=== PATIENT | male | born 2005 | race Caucasian/White ===

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

== ENCOUNTER 2023-02-13 15:30 | Emergency (ER) | payer MEDICAID ==
[~2023-02-13] VITALS: Ht 185.4 cm; Wt 86.5 kg
[~2023-02-13 15:30] MED LIST changes: -AMOX-117 PO; +LIDO15SO3 PO; -NAPR-56 PO
[2023-02-13 15:44] VITALS: BP 156/97; PULSE 86; RESP 18; TEMP 97.6; O2SAT 98
[2023-02-13] MEDS ORDERED: NAPR-56 PO (15:46)
[2023-02-13] MEDS ORDERED: DOXY-1 PO (15:46)
== END 2023-02-13 16:26 | disposition home or self-care (01) ==
LOC: ER 15:30
DX: K04.7 Periapical abscess without sinus (principal)
CPT/HCPCS: 99283

== ENCOUNTER 2024-01-05 22:16 | Emergency (ER) | payer MEDICAID, OTHER ==
[~2024-01-05] VITALS: Ht 185.4 cm; Wt 100.0 kg
[~2024-01-05 22:16] MED LIST changes: -LIDO15SO3 PO; +LIDO15SO9 PO
[2024-01-05 22:33] VITALS: PULSE 95
[2024-01-05 23:43] VITALS: RESP 16
== END 2024-01-05 23:44 | disposition home or self-care (01) ==
LOC: ER 22:17
DX: S63.617A Unspecified sprain of left little finger, initial encounter (principal); Z79.52 Long term (current) use of systemic steroids; Z79.899 Other long term (current) drug therapy; X58.XXXA Exposure to other specified factors, initial encounter; Y93.89 Activity, other specified; Y92.89 Other specified places as the place of occurrence of the external cause; Y99.8 Other external cause status
CPT/HCPCS: 73140; 99283

== ENCOUNTER 2024-07-16 05:33 | Emergency (ER) | payer MEDICAID, OTHER ==
[~2024-07-16] VITALS: Ht 185.4 cm; Wt 81.8 kg
[2024-07-16 05:36] VITALS: BP 128/74; PULSE 89; RESP 17; TEMP 98.1; O2SAT 99
--- NOTE | 2024-07-16 07:21 | Physician Documentation ---
History of Present Illness ~ Chief Complaint: Ear Pain Stated Complaint: EAR PAIN Time Seen by MD: 06:54 Primary Medical Doctor: [facility] HPI 18-year-old male presenting with left ear pain for the past two days. He states that it has been gradually worsening and becoming more severe. The pain radiates from the inside of his ear to his jaw. He denies any drainage from the ear. States that it is also starting to give him a headache. No reports of any fever, chills or any other associated symptoms. Medication Reconciliation Allergies: Coded Allergies: No Known Allergies (Unverified , 07/16/24) Scheduled Lidocaine HCl (Lidocaine HCl Viscous), 2 ML PO Q4H Lidocaine Hcl (Xylocaine Viscous), 5 ML PO Q2H PRN SORE THROAT Methylprednisolone (Medrol), 1 DOSPAK PO UD Past Medical History Past Medical History: No Pertinent History, *ENT*, *RENAL/* Past Surgical History: no surgical history Alcohol Use: None Drug Use: none Lives with: Mother Lives In: Home Occupation: student Review of Systems All Other Systems at this time: Reviewed and Negative Physical Exam Vital Signs: Temperature: 98.1, Source: Oral, Heart Rate: 89, Respiratory Rate: 17, BP: 128/74, Pulse Oximetry: 99, Weight: 81.820 Physical Exam I have reviewed the triage vitals. CONST: Well developed and well nourished. In no acute distress HENT: Head Atraumatic. Left ear with a erythematous and bulging tympanic membrane. Right ear is normal. EYES: Pupils are equal, round and reactive to light. Normal conjunctiva NECK: Normal range of motion. Supple. CARDIO: Normal rate and regular rhythm. No murmurs, rubs, or gallops. S1, S2. PULM/CHEST: No respiratory distress. Lungs clear to auscultation. No wheeze ABD: Soft and nontender. Nondistended. Bowel sounds normal. No guarding. : Exam deferred MSK: No edema. No deformity. NEURO: Alert and oriented to person, place and time. Moving all extremities SKIN: Warm and dry. PSYCH: Normal mood and affect. Good eye contact. Progress Results/Orders Results/Orders Vital Signs 07/16/24 05:36 Temp 98.1 Pulse 89 Resp 17 B/P (MAP) 128/74 Pulse Ox 99 Medical Decision Making Additional Comment 18-year-old male presenting with left otitis media. This is clear and evident on exam and based on the clinical history. I will start treatment with Augmentin 875 mg twice a day for 10 days. Additionally I will prescribe him ibuprofen 600 mg as well as extra-strength Tylenol 500 mg to be taken for pain control. I advised him to take this medication every 6-8 hours initially scheduled for the 1st couple of days and then as needed for adequate pain control. Advised him to monitor for improvement and resolution. Follow up with primary care physician as needed. Return to the ED with any worsening symptoms. Departure Disposition: HOME / SELF CARE / HOMELESS Impression: Primary Impression: Otitis media Referrals: NO PRIMARY CARE PROVIDER (PCP) Prescriptions Acetaminophen (Acetaminophen) 500 Mg Tablet 1 TAB PO Q6H PRN PRN for pain or fever for 15 Days, #60 TAB Prov: ORALIA JOHNSON MD 07/16/24 Ibuprofen (Ibuprofen) 600 Mg Tablet 1 TAB PO Q8H for pain for 10 Days, #30 TAB 0 Refills with food Prov: ORALIA JOHNSON MD 07/16/24 Amox Tr/Potassium Clavulanate 875/125 MG (Augmentin 875/125 MG) 875 Mg-125 Mg Tablet 1 TAB PO Q12H for 10 Days, #20 TAB Prov: ORALIA JOHNSON MD 07/16/24 Comments Take antibiotics as prescribed. Take ibuprofen 600 mg every 6 hours as needed for pain. Take Tylenol 500 mg every 6 hours as needed if ibuprofen is not adequately controlling the pain. Monitor symptoms for improvement and resolution. Follow up with her primary care physician as needed or return to the ED with any worsening symptoms. Signature Scribe Signature: - Attestation: - ORALIA JOHNSON MD Jul 16, 2024 07:21
[2024-07-16] MEDS ORDERED: AMOX-580 PO (07:24)
[2024-07-16] MEDS ORDERED: IBUP-1985 PO (07:24)
[2024-07-16] MEDS ORDERED: ACET-1131 PO (07:24)
== END 2024-07-16 07:29 | disposition home or self-care (01) ==
LOC: ER 05:34
DX: H66.92 Otitis media, unspecified, left ear (principal)
CPT/HCPCS: 99283